=== PATIENT | female | born 1975 | race Caucasian/White ===

== ENCOUNTER → 2020-06-17 | Outpatient (CLI) | payer BC ==
[~2020-06-17] MED LIST: CYCL10 PO; HYDACE5 PO; NAPR500 PO; NAPR550 PO; Percocet 5-3251 EACH PO
[2020-06-20 15:09] LABS: HPV 16 Negative (Negative); HPV 18 Negative (Negative); HPV OTHER HR TYPES Negative (Negative)
== END | disposition home or self-care (01) ==
LOC: LAB 13:39 → LAB SHORT 13:39
PROVIDERS: Obstetrics & Gynecology
DX: N92.0 Excessive and frequent menstruation with regular cycle (principal)
CPT/HCPCS: 87624; 88305; G0123

== ENCOUNTER 2021-06-01 10:19 | Day surgery (SDC) | payer OTHER ==
[~2021-06-01] VITALS: Ht 154.9 cm; Wt 111.2 kg
[~2021-06-01 10:19] MED LIST changes: +IBUP200 PO
--- NOTE | 2021-06-01 12:33 | NUR ---
Ambulatory in Day Surgery Surgical site prepped with 2% Chlorhexidine cloth wipe. History, Chart, Medications and Allergies reviewed before start of procedure.Lungs clear T/O to Auscultation. Patient confirms NPO status and agrees with scheduled surgery. Patient reports completing Chlorhexadine shower X2 prior to admission to hospital. ALL BELONINGS PLACED UNDER THE BED EXCEPT GLASSES IN PACU. SPOKE TO DR PETER REGARDING TEST AND EKG. NO NEW ORDERS.
--- NOTE | 2021-06-01 17:35 | NUR ---
PT ARRIVED TO UNIT FROM PACU AT APROX 1515. PT TX TO BED WITH SLIDER SHEET. PT APPEARS TO BE SLEEPING COMFORTABLY, DOES AWAKE TO VERBAL STIMULI BUT FALLS BACK ASLEEP QUICKLY. LAP SITES X'S 4 C/D/I, UMBILICUS INCISION WITH DERBABOND C/D/I. DIXON WAS DISCONTINUED PRIOR TO ARRIVAL TO UNIT, DENIES NEED TO VOID.
--- NOTE | 2021-06-01 18:44 | NUR ---
SHIFT SUMMARY PT HAS BEEN SLEEPING SINCE ARRIVAL TO UNIT. PT WILL AWAKEN BUT FALL BACK ASLEEP MID-CONVERSATION. NO DISCHARGE CRITERIA HAS BEEN MET AT THIS POINT. PT HAS TAKEN NOTHING IN PO, HAS NOT VOIDED.
--- NOTE | 2021-06-01 22:29 | NUR ---
DR NOTIFIED DR PETER ON PHONE, NOTIFIED OF PT'S POOR RECOVERY RELATED TO DROWSINESS + NAUSEA. NEW ORDER FOR PHENERGAN. OKAY WITH PT STAYING OVER NIGHT WITH PLANS TO DC TOMORROW PT RECOVERS. PT BELONGINGS AT BEDSIDE NOW. CURRENTLY PT IS RESTING IN BED WITH CALL LIGHT IN REACH.
--- NOTE | 2021-06-02 05:00 | NUR ---
SHIFT SUMMARY POD#1 ROBOTIC TOTAL LAP HYSTER AAOX4. DISCOMFORT DECREASED WITH 2 PERCOCET Q4H + TORADOL X1. NAUSEA DECREASED WITH AMBULATION + SIPS CLEARS. NO EMESIS. ABD INCISIONS X4 WITH BANDAIDS C/D/I. PT UP TO RESTROOM SBA THIS AM, CONTINUE TO ENCOURAGE UPON PT'S AWAKENING THIS AM. PT TOLERATING SMALL AMOUNTS FLUIDS + JELLO/CRACKERS. PT RESTING WELL T/O NIGHT.
--- NOTE | 2021-06-02 12:49 | NUR ---
DISCHARGE PT DISCHARGED HOME FROM UNIT AT APROX 1035. PT GIVEN WRITTEN AND VERBAL DISCHARGE INSTRUCTIONS AND VERBALIZED UNDERSTANDING. IV REMOVED, PT TOLERATED WELL. WHEELCHAIR TO CAR. PT REPORTS THAT SHE ALREADY RECIEVED PERSCRIPTIONS FOR PAIN MEDICATION PRIOR TO ADMISSION AND HAS THESE MEDICATIONS AT HOME.
== END 2021-06-02 11:14 | disposition home or self-care (01) ==
LOC: ORSCMMR 10:19 → ORD 11:45 → ORSCMMR 11:45 → SURS 16:53 → ORSCMMR 16:53 → SURS 06-02 11:14 → ORSCMMR 06-02 11:14
PROVIDERS: Obstetrics & Gynecology
PROC: 0UT94ZZ Resection of Uterus, Percutaneous Endoscopic Approach (ICD-10-PCS; principal; 2021-06-01 11:45)
PROC: 8E0W4CZ Robotic Assisted Procedure of Trunk Region, Percutaneous Endoscopic Approach (ICD-10-PCS; principal; 2021-06-01 11:45)
DX: N92.0 Excessive and frequent menstruation with regular cycle (principal); N80.0 Endometriosis of uterus; N72 Inflammatory disease of cervix uteri; K66.0 Peritoneal adhesions (postprocedural) (postinfection); E66.01 Morbid (severe) obesity due to excess calories; Z68.42 Body mass index [BMI] 45.0-49.9, adult
CPT/HCPCS: 58570; S2900; 86850; 86900; 86901; 88307; A9270; J0690; J1100; J1170; J1885; J2250; J2370; J2405; J2550; J2704; J3010; J7120

== ENCOUNTER 2021-10-24 10:39 | Day surgery (SDC) | payer OTHER ==
[~2021-10-24] VITALS: Ht 154.9 cm; Wt 117.0 kg
[~2021-10-24 10:39] MED LIST changes: +MAGNESIUM OXID500 MG PO; +VITAMIN D310 MC4 PO; +ZINC15 PO
--- NOTE | 2021-10-24 14:19 | NUR ---
10/24/21 141 Jennifer Montgomery NOTED TO HAVE REDDENED AREA ON LEFT UPPER ABDOMEN. LOOKS LIKE AN EARLY BRUISE.
--- NOTE | 2021-10-24 16:37 | NUR ---
10/24/21 1637 BOGDAN ROME PEPSI GIVEN FOR NAUSEA NAUSEA HAS LESSED/ PT TOLERATING CRACKERS AND PEPSI PO PAIN MED GIVEN [id number]
== END 2021-10-24 17:00 | disposition home or self-care (01) ==
LOC: ORSCSDS 10:39
PROVIDERS: Surgery
PROC: 0FT44ZZ Resection of Gallbladder, Percutaneous Endoscopic Approach (ICD-10-PCS; principal; 2021-10-24 13:30)
PROC: BF031ZZ Plain Radiography of Gallbladder and Bile Ducts using Low Osmolar Contrast (ICD-10-PCS; principal; 2021-10-24 13:30)
DX: K80.10 Calculus of gallbladder with chronic cholecystitis without obstruction (principal); E66.01 Morbid (severe) obesity due to excess calories; Z68.42 Body mass index [BMI] 45.0-49.9, adult
CPT/HCPCS: 74300; 88304; A9270; C1729; J0690; J1100; J1885; J2250; J2270; J2405; J2550; J2704; J2710; J2765; J3010; J7120

== ENCOUNTER 2022-04-10 11:43 | Day surgery (SDC) | payer OTHER ==
[~2022-04-10] VITALS: Ht 154.9 cm; Wt 113.3 kg
== END 2022-04-10 14:28 | disposition home or self-care (01) ==
LOC: ORSCSDS 11:43
PROVIDERS: Surgery
PROC: 0DB48ZX Excision of Esophagogastric Junction, Via Natural or Artificial Opening Endoscopic, Diagnostic (ICD-10-PCS; principal; 2022-04-10 14:00)
PROC: 0DB68ZX Excision of Stomach, Via Natural or Artificial Opening Endoscopic, Diagnostic (ICD-10-PCS; principal; 2022-04-10 14:00)
PROC: 0DBN8ZX Excision of Sigmoid Colon, Via Natural or Artificial Opening Endoscopic, Diagnostic (ICD-10-PCS; principal; 2022-04-10 14:00)
DX: R10.33 Periumbilical pain (principal); R10.13 Epigastric pain; Z80.0 Family history of malignant neoplasm of digestive organs; D12.5 Benign neoplasm of sigmoid colon; B96.81 Helicobacter pylori [H. pylori] as the cause of diseases classified elsewhere; K21.9 Gastro-esophageal reflux disease without esophagitis; D64.9 Anemia, unspecified; K57.30 Diverticulosis of large intestine without perforation or abscess without bleeding; M79.7 Fibromyalgia; E66.01 Morbid (severe) obesity due to excess calories; Z68.42 Body mass index [BMI] 45.0-49.9, adult
CPT/HCPCS: 88305; 88342; J2704; J3010; J7120

== ENCOUNTER → 2022-12-25 | Outpatient (CLI) | payer OTHER ==
[2022-12-25 17:30] LABS: Source, Urine Voided
[2022-12-25 18:34] LABS: Appearance, Urine Clear (Clear); Bilirubin, Urine Neg (Neg); Blood, Urine Neg (Neg); Glucose Qualitative, Urine Neg (Neg); Ketones, Urine Neg (Neg); Leukocyte Esterase, Urine Neg (Neg); Nitrite, Urine Neg (Neg); Protein, Urine Neg (Neg); Specific Gravity, Urine 1.025 (1.003-1.022); Urobilinogen, Urine NORM (Normal)
[2022-12-25 18:52] LABS: Color, Urine Pale Yellow (P-Yellow)
== END ==
LOC: LAB 16:06 → LAB SHORT 16:06
PROVIDERS: Student in an Organized Health Care Education/Training Program
DX: N89.8 Other specified noninflammatory disorders of vagina (principal)
CPT/HCPCS: 81003

== ENCOUNTER → 2023-05-30 | Outpatient (CLI) | payer OTHER | END | disposition home or self-care (01) | LOC: LAB SHORT 13:33 → LAB 13:33 | DX: N94.9 Unspecified condition associated with female genital organs and menstrual cycle (principal); R30.9 Painful micturition, unspecified | CPT/HCPCS: 87086 ==

== ENCOUNTER 2025-03-02 10:37 | Day surgery (SDC) | payer OTHER ==
[~2025-03-02] VITALS: Ht 154.9 cm; Wt 131.0 kg
[~2025-03-02 10:37] MED LIST changes: +HYDR1TAB94 PO; +TIZA4 PO; +ZYRTEC10 M2 PO
[2025-03-02] MEDS ORDERED: Lactated Ringer's 1,000 ML IV SCH (12:00)
[2025-03-02 12:22] VITALS: BP 119/79
[2025-03-02] MEDS ORDERED: propofoL 50 ML IV ONE (13:06)
--- NOTE | 2025-03-02 13:12 | NUR ---
03/02/25 1312 Cece Donato History, Chart, Medications and Allergies reviewed before start of procedure.CONFIRMED NPO. DR MARQUEZ PROVIDING ANESTHESIA, SEE RECORDS
[2025-03-02 13:28] VITALS: BP 105/72
--- NOTE | 2025-03-02 13:48 | NUR ---
Discharge instructions reviewed with patient. Patient verbalizes understanding. Copy given to patient to take home. Patient States Post-Procedure ride home has been arranged. Discharged via wheelchair to private car for ride home.
== END 2025-03-02 13:49 | disposition home or self-care (01) ==
LOC: ORSCMMR 10:37 → ORD 12:00 → ORSCMMR 12:00
PROVIDERS: Surgery
PROC: 0DB68ZX Excision of Stomach, Via Natural or Artificial Opening Endoscopic, Diagnostic (ICD-10-PCS; principal; 2025-03-02 13:30)
PROC: 0DB58ZX Excision of Esophagus, Via Natural or Artificial Opening Endoscopic, Diagnostic (ICD-10-PCS; principal; 2025-03-02 13:30)
DX: K21.9 Gastro-esophageal reflux disease without esophagitis (principal); R68.81 Early satiety; Z87.11 Personal history of peptic ulcer disease; Z87.19 Personal history of other diseases of the digestive system; K29.70 Gastritis, unspecified, without bleeding; K44.9 Diaphragmatic hernia without obstruction or gangrene; G47.33 Obstructive sleep apnea (adult) (pediatric); E66.01 Morbid (severe) obesity due to excess calories; Z68.43 Body mass index [BMI] 50.0-59.9, adult; Z79.899 Other long term (current) drug therapy
CPT/HCPCS: 88305; 88342; J2704; J7120